=== PATIENT | female | born 1990 | race Caucasian/White ===

== ENCOUNTER 2016-10-09 21:21 | Emergency (ER) | payer OTHER ==
[~2016-10-09] VITALS: Ht 167.6 cm; Wt 63.5 kg
[~2016-10-09 21:21] MED LIST: ACETAMINOPHEN-1 EAC1 PO; NAPROSYN500 MG PO; NORCO 5-325 TA1 EACH PO; PENICILLIN VK500 MG PO; PHENERGAN 25 MG25 M1 PO
[2016-10-09 21:22] VITALS: BP 130/94
[2016-10-09] MEDS ORDERED: TRAMADOL 50 MG50 MG PO (22:16)
== END 2016-10-09 22:53 | disposition home or self-care (01) ==
LOC: ER 21:21
DX: M79.671 Pain in right foot (principal); I10 Essential (primary) hypertension; J45.909 Unspecified asthma, uncomplicated; F17.210 Nicotine dependence, cigarettes, uncomplicated; F15.10 Other stimulant abuse, uncomplicated; Z88.6 Allergy status to analgesic agent

== ENCOUNTER 2016-12-16 11:42 | Emergency (ER) | payer OTHER ==
[~2016-12-16] VITALS: Ht 165.1 cm; Wt 68.0 kg
[~2016-12-16 11:42] MED LIST changes: +TRAMADOL 50 MG50 MG PO
[2016-12-16 11:43] VITALS: BP 133/86
[2016-12-16] MEDS ORDERED: BACTROBAN CREAM30 G1 TOP (12:29)
[2016-12-16] MEDS ORDERED: MAGIC MOUTHWASH SWISH&SPIT (12:30)
== END 2016-12-16 12:40 | disposition home or self-care (01) ==
LOC: ER 11:42
DX: K13.70 Unspecified lesions of oral mucosa (principal); R21 Rash and other nonspecific skin eruption; I10 Essential (primary) hypertension; J45.909 Unspecified asthma, uncomplicated; F17.210 Nicotine dependence, cigarettes, uncomplicated; Z88.6 Allergy status to analgesic agent

== ENCOUNTER 2017-02-07 15:57 | Emergency (ER) | payer OTHER ==
[~2017-02-07] VITALS: Ht 167.6 cm; Wt 72.6 kg
[~2017-02-07 15:57] MED LIST changes: +BACTROBAN CREAM30 G1 TOP; +MAGIC MOUTHWASH SWISH&SPIT
[2017-02-07 15:58] VITALS: BP 145/84
[2017-02-07] MEDS ORDERED: AMOXICILLIN 50500 MG PO (16:15)
[2017-02-07] MEDS ORDERED: MOBIC7.5 MG PO (16:15)
[2017-02-07] MEDS ORDERED: NORCO 5-325 TA1 EACH PO (16:32)
== END 2017-02-07 16:59 | disposition home or self-care (01) ==
LOC: ER 15:57
DX: K08.89 Other specified disorders of teeth and supporting structures (principal); I10 Essential (primary) hypertension; J45.909 Unspecified asthma, uncomplicated; F17.210 Nicotine dependence, cigarettes, uncomplicated; F12.10 Cannabis abuse, uncomplicated; Z88.6 Allergy status to analgesic agent

== ENCOUNTER 2017-11-03 23:34 | Emergency (ER) | payer OTHER ==
[~2017-11-03] VITALS: Ht 165.1 cm; Wt 68.0 kg
--- NOTE | ~2017-11-03 | EKG ---
[address] [place] [address] ELECTROCARDIOGRAM REPORT Name: GARIMA TALLEY Room #: DEP Dominick#: [id number] Admission: 11/03/17 Attend Phys: Discharge: 11/04/17 Date of : 86 Report #: [id number] THIS REPORT FOR: //name// [facility] ED Test Date: 2017-11-04 Test Time: 01:05:26 Pat Name: GARIMA TALLEY Department: Room: Gender: F Riv[employer] Portable Machine: Doris SAVAGE : 1990 Requested By: Pillo Anderson Order Number: [id number] MD: Vel Prescott Measurements Intervals [place] Rate: 77 P: 71 MI: 135 QRS: 83 QRSD: 102 T: 72 QT: 378 QTc: 428 Interpretive Statements Sinus rhythm Normal tracing No previous ECG available for comparison Electronically Signed On 11-04-2017 9:11:39 CDT by Vel Prescott [email or web address] <ELECTRONICALLY SIGNED> By: Vel Prescott MD, [facility] 11/04/17 0911 0105 0105 Vel Prescott MD, FACC /EPI
[~2017-11-03 23:34] MED LIST changes: +AMOXICILLIN 50500 MG PO; +MOBIC7.5 MG PO
[2017-11-04] LABS: URINE BLOOD TRACE (Negative); URINE CLARITY CLEAR; URINE COLOR YELLOW; URINE GLUCOSE-RANDOM* NEGATIVE (Negative); URINE KETONES TRACE (Negative); URINE LEUKOCYTES-REFLEX NEGATIVE (Negative); URINE NITRITE-REFLEX NEGATIVE (Negative); URINE PROTEIN (DIPSTICK) 1+ (Negative)
[2017-11-04 00:06] LABS: ICTOTEST (BILI CONFIRMATORY) Negative (Negative); URINE BILIRUBIN NEGATIVE (Negative)
[2017-11-04 00:07] LABS: BACTERIA-REFLEX None Seen /HPF (None Seen); CASTS None Seen /LPF (None Seen); CRYSTALS None Seen /LPF (None Seen); MUCUS 4-6 Moderate strn/LPF (None Seen); SQUAMOUS 0-3 Few /LPF (0-3); URINE RBC None Seen /HPF (0-2); URINE WBC-REFLEX None Seen /HPF (0-5)
[2017-11-04 00:31] LABS: HEMATOCRIT 39.3 % (37.0-47.0); HEMOGLOBIN 13.6 gm/dL (12.0-15.0); MCH 30.2 pg (26.0-34.0); MCHC 34.6 g/dL (28.0-37.0); MCV 87.2 fL (80.0-100.0); RBC 4.51 mil/uL (4.20-5.00); RDW 12.2 % (10.5-14.5); WBC 7.3 thou/uL (4.0-11.0)
[2017-11-04 00:43] LABS: ANION GAP 8 mmol/L (7-16); BUN 11 mg/dL (7-18); CHLORIDE 104 mmol/L (98-107); CO2 24 mmol/L (21-32); CREATININE 0.7 mg/dL (0.6-1.0); GLUCOSE 107 mg/dL (74-106); POTASSIUM 3.5 mmol/L (3.5-5.1); SODIUM 136 mmol/L (136-145)
[2017-11-04 00:51] LABS: ALBUMIN 3.8 g/dL (3.4-5.0); LIPASE 90 U/L (73-393); SGOT 20 U/L (15-37); SGPT 22 U/L (30-65); TOTAL BILIRUBIN 0.2 mg/dL (<0.1-1.0); TOTAL PROTEIN 7.8 g/dL (6.4-8.2); TROPONIN-I <0.06 ng/mL (<0.06)
[2017-11-04] MEDS ORDERED: ZOFRAN ODT8 MG PO (00:55)
[2017-11-04] MEDS ORDERED: PEPCID20 MG PO (00:56)
[2017-11-04 01:06] LABS: AMP/METHAMP POSITIVE (Negative); BARBITURATES Negative (Negative); BENZODIAZEPINES Negative (Negative); COCAINE Negative (Negative); METHADONE Negative (Negative); OPIATES Negative (Negative); PCP Negative (Negative)
[2017-11-04 01:25] VITALS: BP 148/72
== END 2017-11-04 01:27 | disposition home or self-care (01) ==
LOC: ER 23:34
PROVIDERS: Emergency Medicine
DX: R10.30 Lower abdominal pain, unspecified (principal); R07.9 Chest pain, unspecified; R42 Dizziness and giddiness; R11.2 Nausea with vomiting, unspecified; R19.7 Diarrhea, unspecified; F41.9 Anxiety disorder, unspecified; R35.0 Frequency of micturition; F17.210 Nicotine dependence, cigarettes, uncomplicated; I10 Essential (primary) hypertension; J45.909 Unspecified asthma, uncomplicated; Z88.6 Allergy status to analgesic agent

== ENCOUNTER 2017-12-30 13:53 | Emergency (ER) | payer OTHER ==
[~2017-12-30] VITALS: Ht 167.6 cm; Wt 84.4 kg
[~2017-12-30 13:53] MED LIST changes: +PEPCID20 MG PO; +ZOFRAN ODT8 MG PO
[2017-12-30 14:00] VITALS: BP 133/73
[2017-12-30] MEDS ORDERED: AMOXICILLIN 50500 M1 PO (14:15)
== END 2017-12-30 14:24 | disposition home or self-care (01) ==
LOC: ER 13:53
DX: K05.6 Periodontal disease, unspecified (principal); I10 Essential (primary) hypertension; J45.909 Unspecified asthma, uncomplicated; F17.210 Nicotine dependence, cigarettes, uncomplicated